=== PATIENT | female | born 1955 | race African-American/Black ===

== ENCOUNTER 2018-09-21 07:47 | Emergency (ER) | payer BC ==
[~2018-09-21] VITALS: Ht 157.5 cm; Wt 89.3 kg
[~2018-09-21 07:47] MED LIST: LISI-170 PO
--- NOTE | 2018-09-21 08:14 | NUR ---
pt reports that her BP has been high that stareted 09/14/2018 and has gradually increased during the week until today. bp at time of assessement 189/120. pt takes lisinopril daily. PT states her rx is about to run out and she doesn't have a dr anymore b/c her primary dr no longer accepts the patient's insurance. BP cuff applied. will continue to monitor BP. No acute distress noted. PT does not want a blanket at this time.
[2018-09-21 08:51] VITALS: BP 145/99
== END 2018-09-21 09:03 | disposition home or self-care (01) ==
LOC: ED 08:55
DX: I10 Essential (primary) hypertension (principal); E11.9 Type 2 diabetes mellitus without complications; Z76.0 Encounter for issue of repeat prescription; Z72.9 Problem related to lifestyle, unspecified; Z90.710 Acquired absence of both cervix and uterus
CPT/HCPCS: 93005; 99283